=== PATIENT | female | born 1995 ===

== ENCOUNTER 2021-11-23 17:18 | Emergency (ER) | payer SELFPAY ==
[2021-11-23 17:40] VITALS: BP 139/84
--- NOTE | 2021-11-26 13:06 | Electrocardiograph Report ---
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
== END 2021-11-23 19:30 | disposition left against medical advice (07) ==
LOC: ED 17:18
DX: R07.9 Chest pain, unspecified (principal); Z53.21 Procedure and treatment not carried out due to patient leaving prior to being seen by health care provider
CPT/HCPCS: 93005; 93010

== ENCOUNTER 2022-01-25 19:52 | Emergency (ER) | payer OTHER | END 2022-01-25 20:33 | disposition left against medical advice (07) | LOC: ED 19:52 | DX: R07.89 Other chest pain (principal); Z53.21 Procedure and treatment not carried out due to patient leaving prior to being seen by health care provider ==

== ENCOUNTER 2022-01-27 11:16 | Emergency (ER) | payer OTHER ==
--- NOTE | 2022-01-27 13:31 | Emergency Department Report ---
- General Chief Complaint: Upper Respiratory Infection Stated Complaint: COUGH/WEAKNESS Time Seen by Provider: 01/27/22 13:23 Source: patient Mode of arrival: Ambulatory Limitations: No Limitations - History of Present Illness Initial Comments: 26-year-old -German female presents to the emergency room complaining of cough chest pain headache decreased appetite x2 days. Patient is vaccinated but not booster did get her flu vaccination. She has a history of sarcoidosis. She does not have a primary care provider. She did not get tested for COVID. MD Complaint: fever, cough, sore throat, rhinorrhea, nasal congestion, sinus pain Onset/Timin -: days(s) Severity scale (0 -10): 6 Consistency: constant Improves With: nothing Worsens With: activity, deep breaths Context: sick contacts Associated Symptoms: chills, headache, rhinorrhea, cough, chest pain, abdominal pain, nausea Treatments Prior to Arrival: none - Related Data Previous Rx's Medication Instructions Recorded Last Taken Type Albuterol Sulfate [Proventil Hfa] 6.7 gm IH QID PRN #1 01/27/22 Unknown Rx Promethazine Dm (Nf) [Phenergan Dm 5 ml PO Q6H PRN #110 ml 01/27/22 Unknown Rx 6.25/15 mg 5 ml] methylPREDNISolone [Medrol 4MG 4 mg PO QDAY #21 01/27/22 Unknown Rx DOSEPAK (21 tabs)] Allergies Allergy/AdvReac Type Severity Reaction Status Date / Time No Known Allergies Allergy Verified 01/27/22 13:00 ED Review of Systems ROS: Stated complaint: COUGH/WEAKNESS Other details as noted in HPI Comment: All other systems reviewed and negative ED Past Medical Hx - Past Medical History Previous Medical History?: Yes Hx Asthma: Yes Additional medical history: scarcoidosis - Medications Home Medications: Home Medications Medication Instructions Recorded Confirmed Last Taken Type Albuterol Sulfate [Proventil Hfa] 6.7 gm IH QID PRN #1 01/27/22 Unknown Rx Promethazine Dm (Nf) [Phenergan Dm 5 ml PO Q6H PRN #110 ml 01/27/22 Unknown Rx 6.25/15 mg 5 ml] methylPREDNISolone [Medrol 4MG 4 mg PO QDAY #21 01/27/22 Unknown Rx DOSEPAK (21 tabs)] ED Physical Exam - General Limitations: No Limitations General appearance: alert, in no apparent distress, appears intoxicated - Head Head exam: Present: atraumatic, normocephalic - Eye Eye exam: Present: normal appearance - ENT ENT exam: Present: mucous membranes moist, normal external ear exam - Neck Neck exam: Present: normal inspection - Respiratory Respiratory exam: Present: wheezes - Cardiovascular Cardiovascular Exam: Present: regular rate, normal rhythm. Absent: systolic murmur, diastolic murmur, rubs, gallop - GI/Abdominal GI/Abdominal exam: Present: soft. Absent: distended, tenderness, guarding, rebound - Extremities Exam Extremities exam: Present: normal inspection - Back Exam Back exam: Present: normal inspection - Neurological Exam Neurological exam: Present: alert, oriented X3, normal gait - Psychiatric Psychiatric exam: Present: normal affect, normal mood - Skin Skin exam: Present: warm, dry, intact, normal color. Absent: rash ED Course Vital Signs 01/27/22 13:01 Temperature 98.6 F Pulse Rate 76 Respiratory 20 Rate Blood Pressure 110/59 O2 Sat by Pulse 99 Oximetry ED Medical Decision Making - Medical Decision Making 26-year-old -German female presents to the emergency room complaining of cough chest pain headache decreased appetite x2 days. Patient is vaccinated but not booster did get her flu vaccination. She has a history of sarcoidosis. She does not have a primary care provider. She did not get tested for COVID. Chest x-ray, dexamethasone 10 mg IM, DuoNeb inhalation. Ceftriaxone 1 g IM. Patient be discharged home with Proventil inhaler steroid pack and prescription for promethazine with Critical care attestation.: If time is entered above; I have spent that time in minutes in the direct care of this critically ill patient, excluding procedure time. ED Disposition Clinical Impression: Viral upper respiratory infection Disposition: HOME / SELF CARE / HOMELESS Is pt being admited?: No Does the pt Need Aspirin: No Condition: Stable Instructions: Viral Respiratory Infection, Iaih-Bh-Bvve Additional Instructions: Take medications as prescribed. Follow-up with your primary care provider I have listed 1 before below for your convenience. I recommend COVID testing. Your symptoms appear most consistent with a nonspecific viral syndrome. However, given this current pandemic, COVID-19 is in the differential of possibilities. Despite your previous negative COVID-19 test, I do recommend repeat outpatient Covid 19 testing. In the meantime, isolate/quarantine yourself and stay away from anyone who is elderly, immunocompromised or chronically ill. You can use ibuprofen every 6-8 hours and Tylenol every 4-8 hours, using the dosing on the back of the bottle, as needed for any fever or body aches. Return to the emergency department with any worsening of your symptoms, development of chest pain or shortness of breath, or with any acute distress. Prescriptions: methylPREDNISolone [Medrol 4MG DOSEPAK (21 tabs)] 4 mg PO QDAY #21 Promethazine Dm (Nf) [Phenergan Dm 6.25/15 mg 5 ml] 5 ml PO Q6H PRN #110 ml PRN Reason: Cough Albuterol Sulfate [Proventil Hfa] 6.7 gm IH QID PRN #1 PRN Reason: Cough Referrals: ABRAHAM FOFANA MD [Staff Physician] - 3-5 Days
--- NOTE | 2022-01-27 13:43 | XRay Report ---
CHEST 1 VIEW 01/27/2022 1:28 PM INDICATION / CLINICAL INFORMATION: Cough for 3 days. COMPARISON: Chest 2 views from [facility] on 04/05/2021. FINDINGS: SUPPORT DEVICES: None. HEART / MEDIASTINUM: No significant abnormality. LUNGS / PLEURA: No significant pulmonary abnormality. No significant pleural effusion. No pneumothora x. ADDITIONAL FINDINGS: No significant additional findings. IMPRESSION: 1. No acute abnormality of the chest. Signer Name: Suman Vital MD Signed: 01/27/2022 1:39 PM Workstation Name: [email or web address]
[2022-01-27] MEDS ORDERED: LIDOCAINE-MPF (1%) 10 MG/1 ML VIAL 5 ML INFILTRATI ONE (13:51)
[2022-01-27] MEDS ORDERED: IPRATROPIUM/ALBUTEROL SULFATE 3 ML AMPUL.NEB IH ONE (13:51)
[2022-01-27] MEDS ORDERED: dexAMETHasone 20 MG/5 ML VIAL IV ONE (13:51)
--- NOTE | 2022-01-27 14:48 | Emergency Department Report ---
- General Chief Complaint: Upper Respiratory Infection Stated Complaint: COUGH/WEAKNESS PUI?: Yes Time Seen by Provider: 01/27/22 13:23 Source: patient Mode of arrival: Ambulatory Limitations: No Limitations - Related Data Allergies Allergy/AdvReac Type Severity Reaction Status Date / Time No Known Allergies Allergy Verified 01/27/22 13:00 ED Review of Systems ROS: Stated complaint: COUGH/WEAKNESS Other details as noted in HPI ED Past Medical Hx - Past Medical History Previous Medical History?: Yes Hx Asthma: Yes Additional medical history: scarcoidosis ED Physical Exam - General Limitations: No Limitations ED Course Vital Signs 01/27/22 13:01 Temperature 98.6 F Pulse Rate 76 Respiratory 20 Rate Blood Pressure 110/59 O2 Sat by Pulse 99 Oximetry ED Medical Decision Making - Radiology Data Radiology results: report reviewed [facility] [address] [place] [address] XRay Report Signed Patient: KUMAR RHOADES MR#: [id number] : 1995 Acct:[id number] Age/Sex: 26 / F ADM Date: 01/27/22 Loc: ED Attending Dr: Ordering Physician: BALAJI RHODES Date of Service: 01/27/22 Procedure(s): XR chest 1V ap Accession Number(s): [id number] cc: BALAJI RHODES Fluoro Time In Minutes: CHEST 1 VIEW 01/27/2022 1:28 PM INDICATION / CLINICAL INFORMATION: Cough for 3 days. COMPARISON: Chest 2 views from [facility] on 04/05/2021. FINDINGS: SUPPORT DEVICES: None. HEART / MEDIASTINUM: No significant abnormality. LUNGS / PLEURA: No significant pulmonary abnormality. No significant pleural effusion. No pneumothorax. ADDITIONAL FINDINGS: No significant additional findings. IMPRESSION: 1. No acute abnormality of the chest. Signer Name: Suman Vital MD Signed: 01/27/2022 1:39 PM Workstation Name: [id number] Transcribed By: CRISTAL Dictated By: Suman Vital MD Electronically Authenticated By: Suman Vital MD Signed Date/Time: 01/27/22 133 DD/ 1338 TD/TT: Critical care attestation.: If time is entered above; I have spent that time in minutes in the direct care of this critically ill patient, excluding procedure time. ED Disposition Condition: Stable
[2022-01-27 16:05] VITALS: BP 120/70
== END 2022-01-27 16:03 | disposition home or self-care (01) ==
LOC: ED 11:16
DX: J06.9 Acute upper respiratory infection, unspecified (principal); J45.909 Unspecified asthma, uncomplicated
CPT/HCPCS: 71045; 94640; 96372; 96374; 99283; J0696; J1100; J3490

== ENCOUNTER 2022-02-19 04:03 | Emergency (ER) | payer OTHER ==
[2022-02-19 04:09] VITALS: BP 114/71
== END 2022-02-20 12:15 | disposition left against medical advice (07) ==
LOC: ED 04:03
DX: K08.89 Other specified disorders of teeth and supporting structures (principal); Z53.21 Procedure and treatment not carried out due to patient leaving prior to being seen by health care provider

== ENCOUNTER 2022-04-07 15:29 | Emergency (ER) | payer OTHER ==
[2022-04-07 17:10] VITALS: BP 120/53
[2022-04-07] MEDS ORDERED: ONDANSETRON 4 MG/2 ML INJ IV ONE (17:10)
[2022-04-07] MEDS ORDERED: SODIUM CHLORIDE 0.9% 1000 ML 1,000 ML IV ONE (17:17)
[2022-04-07 18:01] LABS: Hematocrit 40.9 % (30.3-42.9); Hemoglobin 13.4 gm/dl (10.1-14.3); Mean Corpuscular HGB Conc 33 % (30-34); Mean Corpuscular Volume 94 fl (79-97); Platelet Count 257 K/mm3 (140-440); Red Blood Count 4.36 M/mm3 (3.65-5.03); Red Cell Distribution Width 13.4 % (13.2-15.2)
[2022-04-07 18:07] LABS: Alanine Aminotransferase 8 units/L (7-56); BUN/Creatinine Ratio 9; Blood Urea Nitrogen 7 mg/dL (7-17); Calcium 8.9 mg/dL (8.4-10.2); Hemolysis Index 8
[2022-04-07 19:27] LABS: Anisocytosis 1+; Basophils % (Manual) 0 % (0.0-1.8); Eosinophils % (Manual) 0 % (0.0-4.3); Platelet Estimate Consistent w Auto; Total Cells Counted 100
== END 2022-04-08 02:00 | disposition left against medical advice (07) ==
LOC: ED 15:29
DX: K29.70 Gastritis, unspecified, without bleeding (principal); Z53.21 Procedure and treatment not carried out due to patient leaving prior to being seen by health care provider
CPT/HCPCS: 36415; 80053; 85007; 85025; J2405; J7030

== ENCOUNTER 2022-05-07 11:16 | Emergency (ER) | payer SELFPAY ==
[2022-05-07] MEDS ORDERED: ONDANSETRON 4 MG/2 ML INJ IV ONE (12:03)
[2022-05-07] MEDS ORDERED: METOCLOPRAMIDE 10 MG/2 ML INJ IV ONE (12:29)
[2022-05-07] MEDS ORDERED: diphenhydrAMINE 50 MG/ML VIAL IV ONE (12:29)
[2022-05-07] MEDS ORDERED: PANTOPRAZOLE 40 MG INJ IV ONE (12:29)
--- NOTE | 2022-05-07 12:31 | Emergency Department Report ---
ED General Adult HPI - General Chief complaint: Abdominal Pain Stated complaint: ABD PAIN/ERNESTINA PUI?: No Time Seen by Provider: 05/07/22 12:24 Source: patient, EMS ( EMS documentation not available at time of chart dictatio n ), RN notes reviewed, old records reviewed Mode of arrival: Stretcher Limitations: No Limitations - History of Present Illness Initial comments: The patient was evaluated in the emergency department for symptoms described in the history of present illness. He/she was evaluated in the context of the global COVID-19 pandemic, which necessitated consideration that the patient might be at risk for infection with the virus that causes COVID-19. Institutional protocols and algorithms that pertain to the evaluation of patients at risk for COVID-19 are in a state of rapid change based on information released by regulatory bodies including the CDC and federal and state organizations. These policies and algorithms were followed during the patient's care in the emergency department. Please note that these policies, procedures and recommendations changed on a rapid basis. This is a 27-year-old female. She presents to the department today with a primary complaint of painful vaginal bleeding, abdominal cramping, nausea, anxiety, nonspecific difficulty breathing. She denies travel, surgery, immobi lization, DVT and pulmonary embolism risk factors. There is no personal or family history of DVT, pulmonary embolism, or CAD/DE. She is COVID-19 vaccinated, but has not received her booster. She does endorse a history of marijuana consumption, but has recently stopped using marijuana. She does not have dysuria. She is sexually active with 1 partner, and denies the possibility or suspicion for STI. Her symptoms actually worsen when she takes a hot bath or hot shower. -: Gradual, hour(s), days(s) Location: abdomen Severity scale (0 -10): 9 Quality: aching Consistency: constant Improves with: medication Worsens with: movement - Related Data Previous Rx's Medication Instructions Recorded Last Taken Type Albuterol Sulfate [Proventil Hfa] 6.7 gm IH QID PRN #1 01/27/22 Unknown Rx methylPREDNISolone [Medrol 4MG 4 mg PO QDAY #21 01/27/22 Unknown Rx DOSEPAK (21 tabs)] Acetaminophen [Non-Aspirin Extra 500 mg PO Q6HR PRN #30 tablet 05/07/22 Unknown Rx Strength] Ibuprofen [Motrin] 600 mg PO Q8H PRN #30 tablet 05/07/22 Unknown Rx Ondansetron [Zofran Odt] 4 mg PO Q8HR PRN #20 tab.rapdis 05/07/22 Unknown Rx Allergies Allergy/AdvReac Type Severity Reaction Status Date / Time No Known Allergies Allergy Verified 05/07/22 11:28 ED Review of Systems ROS: Stated complaint: ABD PAIN/ERNESTINA Other details as noted in HPI Constitutional: malaise, weakness. denies: fever Eyes: denies: eye discharge ENT: denies: epistaxis Respiratory: shortness of breath. denies: cough Cardiovascular: denies: chest pain Gastrointestinal: abdominal pain. denies: vomiting Genitourinary: other (Vaginal bleeding). denies: dysuria Musculoskeletal: denies: back pain Neurological: weakness (Generalized) Psychiatric: anxiety ED Past Medical Hx - Past Medical History Hx Asthma: Yes Additional medical history: scarcoidosis - Social History Smoking Status: Former Smoker Substance Use Type: None - Medications Home Medications: Home Medications Medication Instructions Recorded Confirmed Last Taken Type Albuterol Sulfate [Proventil Hfa] 6.7 gm IH QID PRN #1 01/27/22 Unknown Rx methylPREDNISolone [Medrol 4MG 4 mg PO QDAY #21 01/27/22 Unknown Rx DOSEPAK (21 tabs)] Acetaminophen [Non-Aspirin Extra 500 mg PO Q6HR PRN #30 tablet 05/07/22 Unknown Rx Strength] Ibuprofen [Motrin] 600 mg PO Q8H PRN #30 tablet 05/07/22 Unknown Rx Ondansetron [Zofran Odt] 4 mg PO Q8HR PRN #20 tab.rapdis 05/07/22 Unknown Rx ED Physical Exam - General Limitations: No Limitations General appearance: alert, anxious, obese - Head Head exam: Present: atraumatic, normocephalic - Eye Eye exam: Present: normal appearance, EOMI. Absent: nystagmus - ENT ENT exam: Present: normal exam, normal orophraynx, mucous membranes moist, normal external ear exam - Neck Neck exam: Present: normal inspection, full ROM. Absent: tenderness, meningismus - Respiratory Respiratory exam: Present: normal lung sounds bilaterally. Absent: respiratory distress, wheezes, rales, rhonchi, stridor, decreased breath sounds - Cardiovascular Cardiovascular Exam: Present: regular rate, normal rhythm, normal heart sounds. Absent: bradycardia, tachycardia, irregular rhythm, systolic murmur, diastolic murmur, rubs, gallop - GI/Abdominal GI/Abdominal exam: Present: soft, normal bowel sounds. Absent: distended, tenderness, guarding, rebound, rigid, pulsatile mass - Rectal Rectal exam: Present: normal inspection - External exam: Present: normal external exam, bleeding, other (Patient provides consent for genital examination, chaperoned by nurse Cesar Gerard). Absent: erythema, swelling, lesions, lacerations, ecchymosis Speculum exam: Absent: erythema, vaginal discharge, cervical discharge, vaginal bleeding, foreign body, tissue, laceration Bi-manual exam: Present: normal bi-manual exam. Absent: cervical motion tendernes, adnexal tenderness, adnexal mass, uterine enlargement, uterine tenderness - Extremities Exam Extremities exam: Present: normal inspection, full ROM, normal capillary refill, other (2+ pulses noted in the bilateral upper and lower extremities. There is no palpable cord. negative Homans sign. Muscular compartments are soft. The pelvis is stable.). Absent: pedal edema, calf tenderness - Back Exam Back exam: Present: normal inspection. Absent: tenderness, CVA tenderness (R), CVA tenderness (L), paraspinal tenderness, vertebral tenderness - Neurological Exam Neurological exam: Present: alert, oriented X3, other (No facial droop. Tongue midline. Extraocular movements intact bilaterally. Facial sensation intact to light touch in V1, V2, V3 distribution bilaterally. 5 and a 5 strength in 4 extremities. Sensation intact to light touch in 4 extremities.). Absent: motor sensory deficit - Psychiatric Psychiatric exam: Present: anxious - Skin Skin exam: Present: warm, dry, intact, normal color. Absent: rash ED Course Vital Signs 05/07/22 05/07/22 05/07/22 11:25 11:38 11:45 Temperature 98.4 F Pulse Rate 90 68 64 Respiratory 16 14 17 Rate Blood Pressure 111/52 Blood Pressure 116/70 [Left] O2 Sat by Pulse 99 100 Oximetry O2 Sat by Pulse Oximetry [ Digit-Finger] 05/07/22 05/07/22 05/07/22 11:46 11:48 11:58 Temperature Pulse Rate 63 63 Respiratory 16 16 16 Rate Blood Pressure 111/52 Blood Pressure 111/52 [Left] O2 Sat by Pulse 100 100 100 Oximetry O2 Sat by Pulse Oximetry [ Digit-Finger] 05/07/22 13:29 Temperature Pulse Rate Respiratory Rate Blood Pressure Blood Pressure [Left] O2 Sat by Pulse Oximetry O2 Sat by Pulse 99 Oximetry [ Digit-Finger] - Reevaluation(s) Reevaluation #1: 05/07/22 13:27 Differential diagnosis, including but not limited to: Dysfunctional uterine bleeding, pneumonia, anxiety, electrolyte derangement, thyroid derangement, , cannabinoid hyperemesis syndrome Assessment and plan: 27-year-old female, who is not currently tachycardic, tachypneic or hypoxic, who denies DVT and pulmonary embolism risk factors, who is low risk by Wells criteria for pulmonary embolism, who is PERC negative, with a soft benign abdomen, without rebound, guarding or peritoneal signs. She does appear to be somewhat anxious. Laboratory studies pending. Specifically awaiting test. We will treat her supportively and symptomatically we will perform a gynecologic examination. I discussed this plan of care with the patient. She is agreeable to the plan of care. All questions have been answered. 05/07/22 14:08 Patient feels markedly improved. Laboratory studies are reviewed and appreciated. Suspect leukocytosis is a stress reaction. No abdominal tenderness on repeat examination. Gynecologic examination benign and unremarkable. Patient endorses complete resolution of symptoms. She endorses readiness for discharge. I suspect dysfunctional uterine bleeding or dysmenorrhea. She is smiling, and endorses complete resolution of symptoms. All questions answered. Return precautions are reviewed - Pulse Oximetry Interpretation Digit-Finger Initial Pulse Oximetry Readin O2 Sat by Pulse Oximetry: 99 Actions Taken: none ED Medical Decision Making - Lab Data Result diagrams: 05/07/22 12:38 05/07/22 12:38 Vital Signs 05/07/22 05/07/22 05/07/22 11:25 11:38 11:45 Temperature 98.4 F Pulse Rate 90 68 64 Respiratory 16 14 17 Rate Blood Pressure 111/52 Blood Pressure 116/70 [Left] O2 Sat by Pulse 99 100 Oximetry O2 Sat by Pulse Oximetry [ Digit-Finger] 05/07/22 05/07/22 05/07/22 11:46 11:48 11:58 Temperature Pulse Rate 63 63 Respiratory 16 16 16 Rate Blood Pressure 111/52 Blood Pressure 111/52 [Left] O2 Sat by Pulse 100 100 100 Oximetry O2 Sat by Pulse Oximetry [ Digit-Finger] 05/07/22 13:29 Temperature Pulse Rate Respiratory Rate Blood Pressure Blood Pressure [Left] O2 Sat by Pulse Oximetry O2 Sat by Pulse 99 Oximetry [ Digit-Finger] Lab Results 05/07/22 05/07/22 05/07/22 Range/Units 12:38 12:38 12:38 WBC 14.4 H (4.5-11.0) K/mm3 RBC 4.84 (3.65-5.03) M/mm3 Hgb 14.9 H (10.1-14.3) gm/dl Hct 45.1 H (30.3-42.9) % MCV 93 (79-97) fl MCH 31 (28-32) pg MCHC 33 (30-34) % RDW 13.0 L (13.2-15.2) % Plt Count 312 (140-440) K/mm3 PT (12.2-14.9) Sec. INR (0.87-1.13) Sodium 138 (137-145) mmol/L Potassium 3.7 (3.6-5.0) mmol/L Chloride 105.3 (98-107) mmol/L Carbon Dioxide 19 L (22-30) mmol/L Anion Gap 17 mmol/L BUN 7 (7-17) mg/dL Creatinine 0.8 (0.6-1.2) mg/dL Estimated GFR > 60 ml/min BUN/Creatinine Ratio 9 % Glucose 113 H (65-100) mg/dL Calcium 9.6 (8.4-10.2) mg/dL Magnesium 1.80 (1.7-2.3) mg/dL Total Bilirubin 0.50 (0.1-1.2) mg/dL AST 15 (5-40) units/L ALT 7 (7-56) units/L Alkaline Phosphatase 87 (35-129) units/L Total Creatine Kinase 101 (30-135) units/L Total Protein 8.0 (6.3-8.2) g/dL Albumin 4.3 (3.9-5) g/dL Albumin/Globulin Ratio 1.2 % HCG, Quant < 2 (0-4) mIU/mL Salicylates (2.8-20.0) mg/dL Acetaminophen (10.0-30.0) ug/mL Plasma/Serum Alcohol (0-0.07) % 05/07/22 05/07/22 05/07/22 Range/Units 12:38 12:38 12:38 WBC (4.5-11.0) K/mm3 RBC (3.65-5.03) M/mm3 Hgb (10.1-14.3) gm/dl Hct (30.3-42.9) % MCV (79-97) fl MCH (28-32) pg MCHC (30-34) % RDW (13.2-15.2) % Plt Count (140-440) K/mm3 PT (12.2-14.9) Sec. INR (0.87-1.13) Sodium (137-145) mmol/L Potassium (3.6-5.0) mmol/L Chloride (98-107) mmol/L Carbon Dioxide (22-30) mmol/L Anion Gap mmol/L BUN (7-17) mg/dL Creatinine (0.6-1.2) mg/dL Estimated GFR ml/min BUN/Creatinine Ratio % Glucose (65-100) mg/dL Calcium (8.4-10.2) mg/dL Magnesium (1.7-2.3) mg/dL Total Bilirubin (0.1-1.2) mg/dL AST (5-40) units/L ALT (7-56) units/L Alkaline Phosphatase (35-129) units/L Total Creatine Kinase (30-135) units/L Total Protein (6.3-8.2) g/dL Albumin (3.9-5) g/dL Albumin/Globulin Ratio % HCG, Quant (0-4) mIU/mL Salicylates < 0.3 L (2.8-20.0) mg/dL Acetaminophen 5.0 L (10.0-30.0) ug/mL Plasma/Serum Alcohol < 0.01 (0-0.07) % 05/07/22 Range/Units 12:38 WBC (4.5-11.0) K/mm3 RBC (3.65-5.03) M/mm3 Hgb (10.1-14.3) gm/dl Hct (30.3-42.9) % MCV (79-97) fl MCH (28-32) pg MCHC (30-34) % RDW (13.2-15.2) % Plt Count (140-440) K/mm3 PT 13.0 (12.2-14.9) Sec. INR 0.89 (0.87-1.13) Sodium (137-145) mmol/L Potassium (3.6-5.0) mmol/L Chloride (98-107) mmol/L Carbon Dioxide (22-30) mmol/L Anion Gap mmol/L BUN (7-17) mg/dL Creatinine (0.6-1.2) mg/dL Estimated GFR ml/min BUN/Creatinine Ratio % Glucose (65-100) mg/dL Calcium (8.4-10.2) mg/dL Magnesium (1.7-2.3) mg/dL Total Bilirubin (0.1-1.2) mg/dL AST (5-40) units/L ALT (7-56) units/L Alkaline Phosphatase (35-129) units/L Total Creatine Kinase (30-135) units/L Total Protein (6.3-8.2) g/dL Albumin (3.9-5) g/dL Albumin/Globulin Ratio % HCG, Quant (0-4) mIU/mL Salicylates (2.8-20.0) mg/dL Acetaminophen (10.0-30.0) ug/mL Plasma/Serum Alcohol (0-0.07) % - EKG Data -: EKG Interpreted by Me EKG shows normal: sinus rhythm Rate: normal - EKG Data Interpretation: unchanged when compared t 05/07/22 13:26 The EKG is interpreted at 12: 53 Sinus rhythm, rate 57 bpm, bradycardia, normal axis, normal P wave axis, QTC is 4 5 4 ms. This is an abnormal EKG. This is not a STEMI unchanged when compared to prior EKG 05/07/22 13:27 - Radiology Data Radiology results: pending, image reviewed interpreted by me: 1 view x-ray of the chest, interpreted by myself, shows clear lungs, no infiltrate, no pneumothorax CHEST 1 VIEW 05/07/2022 1:04 PM INDICATION / CLINICAL INFORMATION: dyspnea. COMPARISON: 01/27/2022 FINDINGS: SUPPORT DEVICES: None. HEART / MEDIASTINUM: No significant abnormality. LUNGS / PLEURA: No significant pulmonary or pleural abnormality. No pneumothorax. ADDITIONAL FINDINGS: No significant additional findings. IMPRESSION: 1. No acute findings. Signer Name: Keegan Flor Jr, MD Signed: 05/07/2022 12:29 PM Workstation Name: [id number] Critical care attestation.: If time is entered above; I have spent that time in minutes in the direct care of this critically ill patient, excluding procedure time. ED Disposition Clinical Impression: Dysmenorrhea, Shortness of breath Disposition: HOME / SELF CARE / HOMELESS Is pt being admited?: No Does the pt Need Aspirin: No Condition: Good Instructions: Abdominal Pain (ED), Dysmenorrhea, Rpeb-[id number], Shortness of Breath, Adult, [id number] Additional Instructions: Avoid consumption of alcohol, tobacco, smoke products, and marijuana. Advance diet as tolerated, and avoid consumption of heavy and spicy foods. Follow-up with your primary care doctor or telecommunications repairer within the next week. Take the pain medications and nausea medications as needed and directed. Please return to the emergency room right away with new pain, worsened pain, migration of pain, projectile vomiting, change in mental status, confusion, inability tolerate liquid feeds, new, worsened or different symptoms not present on the initial emergency room evaluation Referrals: [facility] [Provider Group] - 3-5 Days [facility] [Provider [facility]] - 3-5 Days [facility] [Provider Group] - 3-5 Days [facility] [Provider Group] - 3-5 Days Forms: Work/School Release Form(ED)
[2022-05-07 13:10] LABS: Hematocrit 45.1 % (30.3-42.9); Hemoglobin 14.9 gm/dl (10.1-14.3); Mean Corpuscular HGB Conc 33 % (30-34); Mean Corpuscular Volume 93 fl (79-97); Red Blood Count 4.84 M/mm3 (3.65-5.03)
[2022-05-07 13:11] LABS: Platelet Count 312 K/mm3 (140-440)
--- NOTE | 2022-05-07 13:34 | XRay Report ---
CHEST 1 VIEW 05/07/2022 1:04 PM INDICATION / CLINICAL INFORMATION: dyspnea. COMPARISON: 01/27/2022 FINDINGS: SUPPORT DEVICES: None. HEART / MEDIASTINUM: No significant abnormality. LUNGS / PLEURA: No significant pulmonary or pleural abnormality. No pneumothorax. ADDITIONAL FINDINGS: No significant additional findings. IMPRESSION: 1. No acute findings. Signer Name: Keegan Flor Jr, MD Signed: 05/07/2022 1:29 PM Workstation Name: [id number]
[2022-05-07 13:36] LABS: Alanine Aminotransferase 7 units/L (7-56); Albumin 4.3 g/dL (3.9-5); BUN/Creatinine Ratio 9; Blood Urea Nitrogen 7 mg/dL (7-17); Calcium 9.6 mg/dL (8.4-10.2); Hemolysis Index 8
[2022-05-07] MEDS ORDERED: KETOROLAC 30 MG/1 ML INJ IV ONE (13:52)
[2022-05-07 13:57] LABS: INR 0.89 (0.87-1.13)
[2022-05-07 14:35] VITALS: BP 99/46
--- NOTE | 2022-05-09 14:38 | Electrocardiograph Report ---
[facility] Test Date: 2022-05-07 Test Time: 12:44:05 Pat Name: KUMAR RHOADES Department: Room: Gender: F Network Support Analyst: ALEXX : 1995 Requested By: JOSE OLIVER Order Number: [id number] Reading MD: Toya Banuelos Measurements Intervals [place] Rate: 107 P: 67 [place]: 175 QRS: 77 QRSD: 149 T: -21 QT: 372 QTc: 497 Interpretive Statements Sinus tachycardia Right bundle branch block Compared to ECG 11/23/2021 17:46:17 Right bundle-branch block now present Sinus rhythm no longer present Electronically Signed On 05-09-2022 14:37:44 EDT by Toya Banuelos
--- NOTE | 2022-05-09 14:38 | Electrocardiograph Report ---
[facility] Test Date: 2022-05-07 Test Time: 12:53:43 Pat Name: KUMAR RHOADES Department: Room: Gender: F Chief Of Party: DT : 1995 Requested By: JOSE OLIVER Order Number: [id number] Reading MD: Toya Banuelos Measurements Intervals [place] Rate: 57 P: 45 NC: 142 QRS: 58 QRSD: 83 T: 19 QT: 467 QTc: 454 Interpretive Statements Sinus bradycardia Compared to ECG 11/23/2021 17:46:17 Sinus rhythm no longer present Electronically Signed On 05-09-2022 14:37:48 EDT by Toya Banuelos
== END 2022-05-07 14:38 | disposition home or self-care (01) ==
LOC: ED 11:16
DX: N94.6 Dysmenorrhea, unspecified (principal); R06.02 Shortness of breath
CPT/HCPCS: 36415; 71045; 80053; 82550; 83735; 84702; 85027; 85610; 93005; 96374; 96375; 99285; C9113; J1200; J1885; J2405; J2765; 80320; 99284; G0480

== ENCOUNTER 2022-05-18 21:43 | Emergency (ER) | payer SELFPAY ==
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
[2022-05-19] MEDS ORDERED: KETOROLAC 30 MG/1 ML INJ IM ONE (12:55)
[2022-05-19] MEDS ORDERED: KETOROLAC 30 MG/1 ML INJ IM SCH (13:30)
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
[2022-05-19 16:37] VITALS: BP 151/94
== END 2022-05-19 16:36 | disposition home or self-care (01) ==
LOC: ED 21:43
DX: S16.1XXA Strain of muscle, fascia and tendon at neck level, initial encounter (principal); X58.XXXA Exposure to other specified factors, initial encounter; Y93.89 Activity, other specified; Y92.89 Other specified places as the place of occurrence of the external cause; Y99.8 Other external cause status; S40.011A Contusion of right shoulder, initial encounter; S60.212A Contusion of left wrist, initial encounter
CPT/HCPCS: 72040; 73030; 73110; 99283; J1885

== ENCOUNTER 2022-05-19 09:16 | Emergency (ER) | payer OTHER ==
[2022-05-19 10:28] VITALS: BP 119/71
== END 2022-05-19 22:30 | disposition left against medical advice (07) ==
LOC: ED 09:16
DX: M54.2 Cervicalgia (principal); Z53.21 Procedure and treatment not carried out due to patient leaving prior to being seen by health care provider; V89.2XXA Person injured in unspecified motor-vehicle accident, traffic, initial encounter; Y93.89 Activity, other specified; Y92.89 Other specified places as the place of occurrence of the external cause; Y99.8 Other external cause status

== ENCOUNTER 2022-06-01 07:23 | Emergency (ER) | payer SELFPAY ==
[2022-06-01 07:36] VITALS: BP 107/59
[2022-06-01 08:21] LABS: Basophils % (Auto) 0.5 % (0.0-1.8); Eosinophils # (Auto) 0.2 K/mm3 (0.0-0.4); Eosinophils % (Auto) 1.7 % (0.0-4.3); Hematocrit 36.2 % (30.3-42.9); Hemoglobin 12.6 gm/dl (10.1-14.3); Lymphocytes # (Auto) 1.8 K/mm3 (1.2-5.4); Lymphocytes % (Auto) 17.8 % (13.4-35.0); Mean Corpuscular HGB Conc 35 % (30-34); Mean Corpuscular Volume 92 fl (79-97); Monocytes # (Auto) 0.8 K/mm3 (0.0-0.8); Monocytes % (Auto) 7.6 % (0.0-7.3); Platelet Count 306 K/mm3 (140-440); Red Blood Count 3.95 M/mm3 (3.65-5.03); Red Cell Distribution Width 13.3 % (13.2-15.2)
[2022-06-01 08:36] LABS: BUN/Creatinine Ratio 15; Blood Urea Nitrogen 12 mg/dL (7-17); Hemolysis Index 1
[2022-06-01 09:10] LABS: Mucus,Urine FEW /HPF
[2022-06-01 09:11] LABS: Color,Urine Straw (Yellow)
== END 2022-06-02 01:43 | disposition left against medical advice (07) ==
LOC: ED 07:23
DX: R10.9 Unspecified abdominal pain (principal); Z53.21 Procedure and treatment not carried out due to patient leaving prior to being seen by health care provider
CPT/HCPCS: 36415; 80048; 81001; 82150; 83690; 84703; 85025

== ENCOUNTER 2022-06-02 06:41 | Emergency (ER) | payer SELFPAY ==
[2022-06-02] MEDS ORDERED: ONDANSETRON 4 MG/2 ML INJ IV ONE (09:49)
[2022-06-02] MEDS ORDERED: SODIUM CHLORIDE 0.9% 500 ML 500 ML IV ONE (09:49)
[2022-06-02] MEDS ORDERED: MORPHINE 4 MG/1 ML INJ IV ONE ×2 (09:54→16:24)
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
[2022-06-02] MEDS ORDERED: TETRACAINE 0.5% OPHTH SOLN 4ML OU PRN (10:09)
[2022-06-02] MEDS ORDERED: FLUORESCEIN 1 MG STRIP OP ONE (10:09)
[2022-06-02 11:35] LABS: Basophils # (Auto) 0.2 K/mm3 (0.0-0.1); Basophils % (Auto) 2.1 % (0.0-1.8); Eosinophils % (Auto) 0.5 % (0.0-4.3); Hematocrit 38.9 % (30.3-42.9); Hemoglobin 12.6 gm/dl (10.1-14.3); Lymphocytes # (Auto) 1.2 K/mm3 (1.2-5.4); Lymphocytes % (Auto) 13.1 % (13.4-35.0); Mean Corpuscular HGB Conc 32 % (30-34); Mean Corpuscular Volume 94 fl (79-97); Monocytes # (Auto) 0.4 K/mm3 (0.0-0.8); Monocytes % (Auto) 4.1 % (0.0-7.3); Platelet Count 312 K/mm3 (140-440); Red Blood Count 4.16 M/mm3 (3.65-5.03); Red Cell Distribution Width 13.3 % (13.2-15.2)
[2022-06-02 11:48] LABS: Alanine Aminotransferase 7 units/L (7-56); Albumin 3.8 g/dL (3.9-5); Blood Urea Nitrogen 6 mg/dL (7-17); Calcium 8.5 mg/dL (8.4-10.2); Hemolysis Index 3
[2022-06-02 11:49] LABS: BUN/Creatinine Ratio 10
[2022-06-02] MEDS ORDERED: PROCHLORPERAZINE EDISYLATE 10 MG/2 ML VIAL IV ONE (12:01)
[2022-06-02 12:42] LABS: Color,Urine Yellow (Yellow)
[2022-06-02 14:07] LABS: Mucus,Urine FEW /HPF
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
[2022-06-02 16:26] VITALS: BP 128/80
== END 2022-06-02 16:48 ==
LOC: ED 06:41
DX: S36.113A Laceration of liver, unspecified degree, initial encounter (principal); S31.605A Unspecified open wound of abdominal wall, periumbilic region with penetration into peritoneal cavity, initial encounter; J45.909 Unspecified asthma, uncomplicated; Z87.891 Personal history of nicotine dependence; Z79.899 Other long term (current) drug therapy; X58.XXXA Exposure to other specified factors, initial encounter; Y93.89 Activity, other specified; Y92.89 Other specified places as the place of occurrence of the external cause; Y99.8 Other external cause status
CPT/HCPCS: 36415; 74177; 80053; 81001; 83690; 85025; 96374; 96375; 99285; J2270; J2405; Q9967

== ENCOUNTER 2022-06-04 09:10 | Emergency (ER) | payer SELFPAY ==
[2022-06-04 09:18] VITALS: BP 135/75
== END 2022-06-04 09:20 | disposition left against medical advice (07) ==
LOC: ED 09:10
DX: R11.0 Nausea (principal); Z53.21 Procedure and treatment not carried out due to patient leaving prior to being seen by health care provider

== ENCOUNTER 2022-06-04 18:42 | Emergency (ER) | payer SELFPAY ==
[2022-06-04 18:49] VITALS: BP 138/80
== END 2022-06-05 09:44 | disposition left against medical advice (07) ==
LOC: ED 18:42
DX: S36.113A Laceration of liver, unspecified degree, initial encounter (principal); Z53.21 Procedure and treatment not carried out due to patient leaving prior to being seen by health care provider; X58.XXXA Exposure to other specified factors, initial encounter; Y93.89 Activity, other specified; Y92.89 Other specified places as the place of occurrence of the external cause; Y99.8 Other external cause status